=== PATIENT | female | born 1995 | race Caucasian/White ===

== ENCOUNTER 2016-07-02 10:20 | Emergency (ER) | payer OTHER ==
[2016-07-02 11:10] VITALS: BP 115/73
--- NOTE | 2016-07-02 12:34 | UC ---
Respiratory Complaint HPI - HPI Summary HPI Summary: The patient comes in today for: 1. Head congestion: Onset: 2 days ago. Palliative/provocative: Mucinex helped. Quality: Pressure. Region: Frontal and maxillary sinuses. Severity: 05/27 Time: Constant. Associated symptoms: Ears feel clogged: Present. Rhinitis: clear. Cough: "little bit" but is dry. Dyspnea: None. Chest pain: None. Fever: None. * - History of Current Complaint Chief Complaint: UCRespiratory Stated Complaint: CONGESTION SORE THROAT Time Seen by Provider: 07/02/16 12:28 Hx Obtained From: Patient Hx Last Menstrual Period: 06/08/16 ?: No - Allergies/Home Medications Allergies/Adverse Reactions: Allergies Allergy/AdvReac Type Severity Reaction Status Date / Time No Known Allergies Allergy Verified 07/02/16 11:10 Home Medications: Home Medications Control 1 tab PO DAILY 07/02/16 [History Confirmed 07/02/16] Spironolactone TAB* [Aldactone TAB 25 MG*] 25 mg PO DAILY 07/02/16 [History Confirmed 07/02/16] PMH/Surg Hx/FS Hx/Imm Hx Previously Healthy: No - Family planning/BCP, acne Endocrine History Of: Denies: Diabetes, Thyroid Disease, Hyperthyroidism, Hypothyroidism, Dyslipidemia Cardiovascular History Of: Denies: Cardiac Disorders, Hypertension, Pacemaker/ICD, Myocardial Infarction , Congestive Heart Failure, Atrial Fibrillation, Deep Vein Thrombosis, Bleeding Disorders Respiratory History Of: Denies: COPD, Asthma, Bronchitis, Pneumonia, Pulmonary Embolism GI/ History Of: Denies: Gastroesophageal Reflux, Ulcer, Gastrointestinal Bleed, Gall Bladder Disease, Kidney Stones, Diverticulitis, Renal Disease, Urosepsis Neurological History Of: Denies: TIA, CVA, Dementia, Seizures, Migraine Psychological History Of: Denies: Anxiety, Depression, Bipolar Disorder, Schizophrenia, Post Traumatic Stress Disorder Cancer History Of: Denies: Lung Cancer, Colorectal Cancer, Breast Cancer, Prostate Cancer, Cervical Cancer Other History Of: Negative For: HIV, Hepatitis B, Hepatitis C, Anticoagulant Therapy - Surgical History Surgical History: Yes Surgery Procedure, Year, and Place: 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 - Family History Known Family History: Positive: Cardiac Disease, Hypertension - Social History Alcohol Use: Weekly Substance Use Type: None Smoking Status (MU): Never Smoked Tobacco Review of Systems Constitutional: Negative Skin: Negative Eyes: Negative ENT: Sore Throat, Nasal Discharge Respiratory: Cough Cardiovascular: Negative Gastrointestinal: Negative Genitourinary: Negative All Other Systems Reviewed And Are Negative: Yes Physical Exam Triage Information Reviewed: Yes Appearance: Well-Appearing, No Pain Distress, Well-Nourished Vital Signs: Initial Vital Signs Temp 99.1 F 07/02/16 11:07 Pulse 88 07/02/16 11:07 Resp 16 07/02/16 11:07 BP 115/73 07/02/16 11:07 Pulse Ox 100 07/02/16 11:07 Vital Signs Reviewed: Yes Eyes: Positive: Conjunctiva Clear. Negative: Discharge ENT: Positive: Hearing grossly normal. Negative: Pharyngeal erythema, Nasal congestion, Nasal drainage, TM bulging, TM dull, TM red, Tonsillar swelling, Tonsillar exudate Dental: Negative: Gross Decay/Caries @, Dental Fracture @ Neck: Positive: Supple, Nontender, No Lymphadenopathy. Negative: Nuchal Rigidity Respiratory: Positive: Chest non-tender, Lungs clear, No respiratory distress, No accessory muscle use. Negative: Crackles, Wheezing Cardiovascular: Positive: RRR, No Murmur Abdomen Description: Positive: Nontender, No Organomegaly, Soft. Negative: Distended, Guarding Musculoskeletal: Positive: Strength Intact, ROM Intact Neurological: Positive: Alert, Muscle Tone Normal Psychological: Positive: Normal Response To Family, Age Appropriate Behavior, Consolable Skin: Negative: rashes, breakdown UC Diagnostic Evaluation - Laboratory O2 Sat by Pulse Oximetry: 100 Respiratory Course/Dx - Differential Dx/Diagnosis Differential Diagnosis/HQI/PQRI: Bronchitis, Laryngitis, Sinusitis Provider Diagnoses: Upper respiratory infection. Discharge - Discharge Plan Condition: Stable Disposition: HOME Patient Education Materials: Upper Respiratory Infection (ED) Referrals: Non Staff,Doctor [Primary Care Provider] - 1 Week (Please see your primary care provider or student health center iin about a week. If you don't have a primary care provider or can't get in to see your student health center, you can see us again.If you get worse, please be seen sooner. IF ) Additional Instructions: Please start with the Naproxen as needed for your sinus pressure/discomfort. If this does not help and particularly, if you continue to have pressure along with discolored nasal discharge (green/yellow), starting the antibiotic at that time may be helpful.
== END 2016-07-02 12:56 | disposition home or self-care (01) ==
LOC: UCCORT 10:20
DX: J06.9 Acute upper respiratory infection, unspecified (principal); R09.81 Nasal congestion
CPT/HCPCS: 99212; G0463